=== PATIENT | female | born 1960 | race Asian ===

== ENCOUNTER 2016-10-28 11:17 | Emergency (ER) | payer OTHER ==
[2016-10-28 11:28] VITALS: TEMP 97.9
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
[2016-10-28 13:47] VITALS: BP 97/79; PULSE 76; RESP 16; O2SAT 96
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
== END 2016-10-28 13:46 | disposition home or self-care (01) ==
DX: S29.012A Strain of muscle and tendon of back wall of thorax, initial encounter (principal); V47.9XXA Unspecified car occupant injured in collision with fixed or stationary object in traffic accident, initial encounter; Y92.410 Unspecified street and highway as the place of occurrence of the external cause